=== PATIENT | female | born 1970 | race Hispanic/Latino ===

== ENCOUNTER 2019-01-04 08:14 | Day surgery (SDC) | payer BC ==
[2018-12-31 10:07] VITALS: BMI 21.6
[2019-01-04] MEDS ORDERED: Sodium Chloride 0.9% 1,000 ML IV SCH (09:00)
[2019-01-04] MEDS ORDERED: Propofol 10 mg/ml Inj (20 ML) ONE (10:04)
[2019-01-04 13:05] VITALS: BP 127/71; RESP 16; TEMP 98.4; O2SAT 100
[2019-01-04 13:06] VITALS: PULSE 75
== END 2019-01-04 12:33 | disposition home or self-care (01) ==
LOC: ENDO 08:14
PROVIDERS: ATTEND Internal Medicine Gastroenterology
DX: K21.9 Gastro-esophageal reflux disease without esophagitis (principal); Z12.11 Encounter for screening for malignant neoplasm of colon; Z80.0 Family history of malignant neoplasm of digestive organs; K25.9 Gastric ulcer, unspecified as acute or chronic, without hemorrhage or perforation; K29.70 Gastritis, unspecified, without bleeding; K29.80 Duodenitis without bleeding; K64.9 Unspecified hemorrhoids
CPT/HCPCS: 43239; 45378; 88305; 88342; J2001; J2704; J3010; J7030; J7040